=== PATIENT | male | born 1980 | race Caucasian/White ===

== ENCOUNTER 2016-09-11 03:18 | Emergency (ER) | payer BC ==
[~2016-09-11] VITALS: Ht 182.9 cm; Wt 98.0 kg
[2016-09-11] MEDS ORDERED: HYDROMORPHONE 1 MG/1 ML DISP.SYRIN ONE (03:34)
[2016-09-11] MEDS ORDERED: ONDANSETRON HCL/PF 4 MG/2 ML VIAL ONE (03:34)
[2016-09-11] MEDS ORDERED: IV NS 0.9% 1,000 ML ONE (03:35)
[2016-09-11] MEDS ORDERED: IV SET PRIMARY 1 EA INFUS.SET MC ONE (03:35)
--- NOTE | 2016-09-11 03:35 | NUR ---
PT BIBSELF AMBULATORY TO ER BED 5 C/O RLQ ABD PAIN SINCE MONDAY, WORSE TONIGHT. PT AOX4 RR EVEN AND UNLABORED. NO SOB NOTED. NAD NOTED. NO NVD AT THIS TIME. PT NOT DIAPHORETIC. PT GOWNED AND PLACED ON MONITOR WAITING FOR MD RANKIN.
--- NOTE | 2016-09-11 03:40 | NUR ---
URINE COLLECTED. CALLED LAB FOR [employer] CLERK.
[2016-09-11 03:42] LABS: APPEARANCE,URINE CLEAR (CLEAR); BILIRUBIN,URINE NEGATIVE (NEGATIVE); BLOOD, URINE NEGATIVE Ery/uL (NEGATIVE); COLOR,URINE YELLOW (YELLOW); KETONES,URINE NEGATIVE (NEGATIVE); LEUKOCYTE ESTERASE ,URINE NEGATIVE (NEGATIVE); NITRITE, URINE NEGATIVE (NEGATIVE); PROTEIN,URINE NEGATIVE (NEGATIVE); UGLUCOSE NEGATIVE (NEGATIVE); UROBILINOGEN,URINE 0.2 EU/dL (0.2)
--- NOTE | 2016-09-11 03:45 | NUR ---
medicated pt as ordered
[2016-09-11 03:48] LABS: BASOPHILS % (AUTO) 0.4 % (0.0-2.0); EOSINOPHILS # (AUTO) 0.7 /CMM (0.0-0.7); EOSINOPHILS % (AUTO) 7.2 % (0.0-6.0); HEMATOCRIT 45 % (39-51); HEMOGLOBIN 15.2 g/dL (13.5-17.5); LYMPHOCYTES # (AUTO) 2.2 /CMM (0.8-4.8); LYMPHOCYTES % (AUTO) 21.9 % (20.0-44.0); MEAN CORPUSCULAR HEMOGLOBIN 28 PG (26.0-33.0); MEAN CORPUSCULAR HGB CONC 34 g/dl (31.0-36.0); MEAN CORPUSCULAR VOLUME 82 fL (80-96); MONOCYTES % (AUTO) 9.3 % (2.0-12.0); NEUTROPHILS # (AUTO) 6.3 /CMM (1.8-8.9); NEUTROPHILS % (AUTO) 61.2 % (43.0-81.0); PLATELET COUNT (AUTO) 253 /CMM (150-450); RDW COEFFICIENT OF VARIATION 13.4 (11.5-15.0); WHITE BLOOD COUNT (AUTO) 10.2 K/uL (4.3-11.0)
[2016-09-11 03:59] LABS: CALCIUM, SERUM 8.8 mg/dL (8.5-10.1); POTASSIUM 3.5 mmol/L (3.5-5.1)
[2016-09-11] MEDS ORDERED: ONDANSETRON HCL/PF 4 MG/2 ML VIAL IVP ONE (04:00)
[2016-09-11] MEDS ORDERED: HYDROMORPHONE INJ 2 MG/ML DISP.SYRIN IV ONE (04:00)
[2016-09-11] MEDS ORDERED: IV NS 0.9% 1,000 ML BAG IV ONE (04:00)
[2016-09-11 04:04] LABS: ALBUMIN 4.2 g/dL (3.4-5.0); BILIRUBIN,DIRECT 0.1 mg/dL (0.0-0.2); BILIRUBIN,TOTAL 0.4 mg/dL (0.2-1.0); INR 0.95 (0.87-1.13); PROTHROMBIN TIME 10.1 SECS (9.5-12.7); TOTAL PROTEIN, SERUM 7.7 g/dL (6.4-8.2)
--- NOTE | 2016-09-11 04:04 | NUR ---
[employer] AT BEDSIDE
[2016-09-11] MEDS ORDERED: IOHEXOL-300 100 ML VIAL IV ONE (04:26)
[2016-09-11] MEDS ORDERED: IV NS 0.9% 250 ML IV ONE (04:26)
--- NOTE | 2016-09-11 04:40 | NUR ---
PT TO CT.
--- NOTE | 2016-09-11 06:12 | NUR ---
IV removed. Catheter intact and site benign. Pressure and 4x4 applied to site. No bleeding noted. DPatient discharged to home in stable condition. Written and verbal after care instructions given. Patient verbalizes understanding of instruction. ambulatory with a steady gait. instructed pt not to drive. pt verbalize understanding.
[2016-09-11 06:14] VITALS: BP 137/72
== END 2016-09-11 06:15 | disposition home or self-care (01) ==
LOC: ER 03:18
DX: K80.20 Calculus of gallbladder without cholecystitis without obstruction (principal); Z90.49 Acquired absence of other specified parts of digestive tract
CPT/HCPCS: 36415; 74160; 76705; 80048; 80076; 81001; 83690; 85025; 85730; 96361; 96374; 96375; 99285; A4606; J1170; J2405; J7030; J7050; Q9967; Z7610; 81000-TC